=== PATIENT | male | born 1980 | race Caucasian/White ===

== ENCOUNTER 2020-02-05 17:49 | Emergency (ER) | payer OTHER ==
[~2020-02-05] VITALS: Ht 188 cm; Wt 96.2 kg
--- NOTE | 2020-02-05 17:50 | NUR ---
CAME IN FOR L FOOT PAIN AND SWELLING S/P SLIPPED AND FELL. -KO, TO ER BED 9, HOOKED TO MONITOR, WARM BLANKET PROVIDED, DR NORWOOD AT BEDSIDE
[2020-02-05] MEDS ORDERED: KETOROLAC TROMETHAMINE INJ 60 MG/2 ML VIAL IM ONE (18:00)
[2020-02-05] MEDS ORDERED: HYDROMORPHONE INJ 0.5 MG/0.5 ML SYRINGE IM ONE (18:00)
[2020-02-05] MEDS ORDERED: HYDROMORPHONE 1 MG/1 ML DISP.SYRIN ONE (18:05)
[2020-02-05] MEDS ORDERED: KETOROLAC TROMETHAMINE INJ 30 MG/ML VIAL ONE (18:05)
--- NOTE | 2020-02-05 18:08 | NUR ---
BLOW MOULDING MACHINE OPERATOR AT BEDSIDE FOR XRAY
--- NOTE | 2020-02-05 19:04 | NUR ---
ADMINISTRATIVE ASSISTANT DATA ENTRY AT BEDSIDE FOR POSTERIOR ANKLE SPLINT. ALSO FOR CRUTCH GAIT TRAINING
--- NOTE | 2020-02-05 19:10 | NUR ---
PATIENT INSTRUCTED NOT TO DRIVE. PATIENT VERBALIZED HE WILL CALL HIS FRIEND THAT LIVES NEARBY TO PICK HIM UP.
[2020-02-05 19:13] VITALS: BP 130/84
--- NOTE | 2020-02-05 19:13 | NUR ---
Patient discharged to home in stable condition. Written and verbal after care instructions given. Patient verbalizes understanding of instruction.
== END 2020-02-05 19:14 | disposition home or self-care (01) ==
LOC: ER 17:53
DX: S92.352A Displaced fracture of fifth metatarsal bone, left foot, initial encounter for closed fracture (principal); K21.9 Gastro-esophageal reflux disease without esophagitis; E11.9 Type 2 diabetes mellitus without complications; Z88.0 Allergy status to penicillin; W01.0XXA Fall on same level from slipping, tripping and stumbling without subsequent striking against object, initial encounter; Y93.89 Activity, other specified; Y92.89 Other specified places as the place of occurrence of the external cause; Y99.8 Other external cause status
CPT/HCPCS: 29515; 73610; 73630; 96372 ×2; 99284; J1170; J1885